=== PATIENT | female | born 1985 | race Caucasian/White ===

== ENCOUNTER 2019-01-05 08:39 | Inpatient (IN) | payer MEDICAID ==
[~2019-01-05] VITALS: Ht 162.6 cm; Wt 72.7 kg
[2019-01-05] VITALS (11 sets, daily range): BP systolic 110–146; BP diastolic 62–73; PULSE 88–109; RESP 17–25; Ht 162.6 cm; Wt 72.7 kg
[2019-01-05] MEDS ORDERED: NITR-58 PO (09:05)
--- NOTE | 2019-01-05 11:17 | HP ---
Date/Time of Note Date/Time of Note DATE: 01/05/19 TIME: 11:14 OB - History Hx of Present Free Text/Dictation 35+wks with right side abdominal pain more pronounced in RLQ +tenderness WBC 14k Highly suspected of Appendicitis, Patient is evaluated as Per 's request and she will be in charge and follow up on her patient : 5 Para: 2 Care: Good Care Ultrasounds: Normal mid trimester US Obstetrical Complications: None Medical Complications: None Past Family/Social History * Past Medical, Surgical, Family and Obstetric Histories reviewed from chart. OB Admission Exam Vital Signs Vital Signs Vital Signs Date Temp Pulse Resp B/P (MAP) Pulse Ox O2 O2 Flow FiO2 Time Delivery Rate 01/05/19 98.0 108 17 116/73 09:02 (87) Physical Exam Abdomen: Abnormal (RLQ tenderness+rebound) Extremities: Normal Cervical Dilatation: None Effacement: 0% Station: Ballotable Membranes: Intact Heart Rate: 140's Accelerations: Accelerations Present Decelerations: No Decelerations Varibility: Moderate Contractions on Admission: None Last 72 hours Lab Results CBC & BMP 01/05/19 09:39 Liver Function Test 01/05/19 09:39 Alanine Aminotransferase (ALT/SGPT) 22 Albumin 3.6 Alkaline Phosphatase 148 H Aspartate Amino Transf (AST/SGOT) 19 Direct Bilirubin 0.00 Total Protein 7.1 OB Assessment/Plan Reason for admission: observation Plan: Expectant Management Other plan: 1.MRI 2.NPO 3.IV hydration and pain management 4.Close Observation Patient is evaluated as Per 's request and she will be in charge and follow up on her patient CHRISTIE NORTH M.D. Jan 05, 2019 11:17
--- NOTE | 2019-01-05 11:47 | TRIAGE ---
OB Triage Datetime Report Generated by CPN: 01/05/2019 11:46 Datetime: 01/05/2019 11:21 Stage of : Antepartum Datetime: 01/05/2019 11:20 Pattern: Normal: <= 5 Contractions in 10 Minutes Resting Tone [place]: Relaxed Contraction Comments: no uc Heart Rate FHR Baseline Rate: 145 Variability: Moderate 6-25 bpm Accelerations: 15X15 Decelerations: None Category: Category I Datetime: 01/05/2019 11:03 Vaginal Exam Dilatation (cms): 0.0 Exam By: wliu Datetime: 01/05/2019 11:00 Labor Evaluation Frequency: occ Monitor Mode: External Duration (sec)2399: 50-60 Quality: Mild Pattern: Normal: <= 5 Contractions in 10 Minutes Resting Tone [place]: Relaxed Heart Rate FHR Baseline Rate: 145 Variability: Moderate 6-25 bpm Accelerations: 15X15 Decelerations: None Category: Category I Pain Assessment Pain Scale: 7 Pain Presence: Constant Pain Location: Abdomen Pain Goal: 3 Datetime: 01/05/2019 10:01 Pattern: Normal: <= 5 Contractions in 10 Minutes Resting Tone [place]: Relaxed Contraction Comments: no uc Heart Rate FHR Baseline Rate: 145 Monitor Mode: External US Variability: Moderate 6-25 bpm Accelerations: 15X15 Decelerations: None Category: Category I Datetime: 01/05/2019 09:22 Time of Arrival: 01/05/2019 08:38 EGA: 35.1 Arrived By: Wheelchair Arrived From: Home Chief Complaint: pt. came to hospital c/o abdominal pain since 0400am, constant pain, pain level 7/ 10, deny srom, deny vag. bleeding, Movement: Present Contractions: Denies/Absent Rupture of Membranes: Denies Vaginal Bleeding: None Vaginal Discharge: Denies Recent Sexual Intercouse: Denies Abdominal Trauma: Not Applicable Patient Complaints: Other Additional Patient Complaints: history of uti on macrobid Time Provider Notified: 01/05/2019 09:14 Provider Notified: Initial Plan: r/o ptl Datetime: 01/05/2019 09:14 Assessment Type: Triage Maternal Assessment Level of Consciousness: Fully Conscious DTR's/Clonus: DTRs 2+; No Clonus Headache: Denies Blurred Vision: No Respiratory Effort: Unlabored; Regular Rhythm; Equal Expansion Breath Sounds, Left: Clear and Equal Breath Sounds, Right: Clear and Equal Nausea/Vomiting: Denies RUQ Epigastric Pain: Denies Lower Extremities Edema: None Degree: None Upper Extremities Edema: None Degree: None Facial Edema: None Fall Risk Assessment History of Falling: (0) No Secondary Diagnosis: (0) No Ambulatory Aid: (0) Bedrest/Nurse Assist IV Therapy: (0) No Gait: (0) Normal/Bedrest/Immobile Mental Status: (0) Oriented to Own Ability Fall Score: 0 Fall Risk Score Definition: No Risk: No action required
[2019-01-05] MEDS: LACTATED RINGER'S 1,000 ML IV SCH ×2 (12:05→14:38)
[2019-01-05] MEDS: BUTORPHANOL 2 MG INJ IV PRN ×2 (12:09→17:18)
[2019-01-05] MEDS ORDERED: TERBUTALINE 1 MG/ML INJ SC ONE (18:00)
[2019-01-05] MEDS ORDERED: DEXAMETHASONE 4 MG/ML 5 ML INJ IM SCH (20:00)
[2019-01-05] MEDS: DEXAMETHASONE 4 MG/ML 5 ML INJ IM SCH (20:33)
--- NOTE | 2019-01-05 20:48 | QN ---
Documentation Comment 33 years old 5 para 4004 with single intrauterine at 34 weeks and 5 days by second trimester ultrasound which done at [place]. She presented to triage with complaint of abdominal pain today. MRI performed which revealed, acute appendicitis, unclear if it is ruptured with mild bilateral hydroureteronephrosis. I have discussed the MRI results with Dr. Shah who kindly accept to visit the patient. He is planning to perform appendectomy. I have discussed the risk with patient including but not limited to delivery of baby, respiratory distress, hyperbilirubinemia, anemia of prematurity, needs NICU admission, also the risk of vaginal delivery or discussed in detail with patient and all family member. All expressed understanding. All of their questions answered. Dexamethasone 6 mg IM every 6 hours for maturity of lung ordered. The patient will be transferred to labor and delivery for close monitoring after surgery. Immediately after surgery heart rate will be checked. If the patient has uterine contraction which can start magnesium sulfate 1 g/h. I discussed patient over the phone with Dr. Blaine Ayala who has agreed with above plan. CAROL HERRERA Jan 05, 2019 20:48
--- NOTE | 2019-01-05 21:19 | CONS ---
Assessment/Plan Assessment/Plan Assessment/Plan (Daily) 33-year-old female who is 32 weeks gestation with fifth presents with abdominal pain leukocytosis and signs and symptoms consistent with acute appendicitis on MRI and ultrasound. Patient's white blood cell count has risen from 14,000 this morning to 20,000 just now. Assessment is that patient has likely acute appendicitis unknown whether rupture or not. No evidence of abscess on MRI. OB has assessed patient and is monitored and ultrasound reveals a healthy fetus. Recommendation is for urgent laparoscopy with laparoscopic appendectomy understanding the risks of possible surgery anesthesia or infection causing a premature induction of labor. OB is present ultrasound and monitoring have been performed. Patient understands risks benefits alternatives and we will proceed with surgery as soon as or can be arranged. Consultation Date/Type/Reason Admit Date/Time Jan 05, 2019 at 11:20 Date of Consultation: Jan 05, 2019 Type of Consult surgical consult Reason for Consultation abdominal pain , Appendicitis by MRI Requesting Provider: CAROL HERRERA Date/Time of Note DATE: 01/05/19 TIME: 21:14 Hx of Present Illness Patient is 33-year-old female in fifth at 32 weeks presented to the emergency room after acute onset of pain at 2:00 this morning in the mid abdomen and right sided abdomen. Patient was seen by OB in the morning and evaluation with ultrasound and MRI were highly suspicious for appendicitis with a 1 cm dilated appendix without ability to assess for perforation. heart tones have been normal viability has been sound. Patient prior for deliveries were vaginal normal healthy . Patient has no other significant medical history Past Medical History Home Meds Reported Medications Nitrofurantoin Monohyd Macrocr* (Macrobid*) 100 Mg Capsr, 100 MG PO BID, CAP 01/05/19 Medications Current Medications Lactated Ringer's 1,000 ml @ 125 mls/hr Q8H IV Last administered on 01/05/19at 14:38; Admin Dose 125 MLS/HR; Start 01/05/19 at 11:15 Butorphanol Tartrate (Stadol) 2 mg Q4H PRN IV PAIN Last administered on 01/05/19at 17:18; Admin Dose 2 MG; Start 01/05/19 at 12:00 Dexamethasone (Decadron) 6 mg Q6H IM Last administered on 01/05/19at 20:33; Admin Dose 6 MG; Start 01/05/19 at 20:30; Stop 01/06/19 at 14:31 Allergies: Coded Allergies: penicillin G (Verified Allergy, Intermediate, RASH, 01/05/19) Exam/Review of Systems Exam Vitals Vital Signs Date Temp Pulse Resp B/P (MAP) Pulse Ox O2 O2 Flow FiO2 Time Delivery Rate 01/05/19 98.0 108 17 116/73 09:02 (87) Exam Patient alert and oriented Lao-speaking female complaining of severe pain to right side of abdomen. Seen by OB and felt safe to proceed with above-stated procedure heart tones have been monitored. Lungs clear to auscultation heart regular rate and rhythm abdomen gravid uterus at 32weeks with marked tenderness right side of abdomen. Results Result Diagram: 01/05/19202401/05/19938 Results 24hrs Laboratory Tests Test 01/05/19 09:30 01/05/19 09:39 01/05/19 20:25 Urine Color YELLOW Urine Clarity SLIGHTLY CLOUDY A Urine pH 6.0 Urine Specific [place] 1.017 Urine Ketones NEGATIVE Urine Nitrite NEGATIVE Urine Bilirubin NEGATIVE Urine Urobilinogen NEGATIVE Urine Leukocyte Esterase NEGATIVE Urine Microscopic RBC 1 Urine Microscopic WBC 2 Urine Squamous FEW Epithelial Cells Urine Hemoglobin NEGATIVE Urine Glucose NEGATIVE Urine Total Protein NEGATIVE White Blood Count 14.6 H 20.8 #H Red Blood Count 3.83 L 3.77 L Hemoglobin 11.9 L 11.6 L Hematocrit 35.1 L 34.4 L Mean Corpuscular Volume 91.6 91.2 Mean Corpuscular Hemoglobin 31.1 30.8 Mean Corpuscular 33.9 33.7 Hemoglobin Concent Red Cell Distribution Width 13.2 13.2 Platelet Count 178 199 Mean Platelet Volume 10.7 H 10.5 H Immature Granulocytes % 0.800 H 0.900 H Neutrophils % 79.6 H 85.0 H Lymphocytes % 13.7 L 7.4 L Monocytes % 4.8 6.4 Eosinophils % 0.8 0.0 Basophils % 0.3 0.3 Nucleated Red Blood Cells % 0.0 0.0 Immature Granulocytes # 0.110 H 0.190 H Neutrophils # 11.7 H 17.7 H Lymphocytes # 2.0 1.5 Monocytes # 0.7 1.3 H Eosinophils # 0.1 0.0 Basophils # 0.0 0.1 Nucleated Red Blood Cells # 0.0 0.0 Sodium Level 137 Potassium Level 3.4 L Chloride Level 106 Carbon Dioxide Level 22 Anion Gap 9 Blood Urea Nitrogen 4 L Creatinine 0.51 Est Glomerular Filtrat > 60 Rate mL/min Glucose Level 86 Calcium Level 9.1 Total Bilirubin 0.3 Direct Bilirubin 0.00 Indirect Bilirubin 0.3 Aspartate Amino 19 Transf (AST/SGOT) Alanine 22 Aminotransferase (ALT/SGPT) Alkaline Phosphatase 148 H Total Protein 7.1 Albumin 3.6 Globulin 3.50 H Albumin/Globulin Ratio 1.02 Amylase Level 66 Lipase 19 L Medications Medication Current Medications Lactated Ringer's 1,000 ml @ 125 mls/hr Q8H IV Last administered on 01/05/19 14:38; Admin Dose 125 MLS/HR; Start 01/05/19 at 11:15 Butorphanol Tartrate (Stadol) 2 mg Q4H PRN IV PAIN Last administered on 01/05/19 17:18; Admin Dose 2 MG; Start 01/05/19 at 12:00 Dexamethasone (Decadron) 6 mg Q6H IM Last administered on 01/05/19 20:33; Admin Dose 6 MG; Start 01/05/19 at 20:30; Stop 01/06/19 at 14:31 LIO CARDONA MD Jan 05, 2019 21:19
--- NOTE | 2019-01-05 21:31 | PREAC ---
Date/Time of Note Date/Time of Note DATE: 01/05/19 TIME: :26 Anesthesia Eval and Record Evaluation Time Pre-Procedure Interview DATE: 01/05/19 TIME: 21:26 Age 33 Sex female NPO: Other (NPO except apple about 3.5 hours ago) Preoperative diagnosis appendicitis Planned procedure laproscopic appendectomy Past Medical History Past Medical History: Includes Pulm: Asthma : Gestational age: (34 weeks ) Surgery & Anesthesia Issues No known issue Meds Anticoagulation: No Beta Zara within 24 hr: No Reason Beta Zara not given: Pt. not on B-Zara Reported Medications Nitrofurantoin Monohyd Macrocr* (Macrobid*) 100 Mg Capsr, 100 MG PO BID, CAP 01/05/19 Current Medications Lactated Ringer's 1,000 ml @ 125 mls/hr Q8H IV Last administered on 01/05/19at 14:38; Admin Dose 125 MLS/HR; Start 01/05/19 at 11:15 Butorphanol Tartrate (Stadol) 2 mg Q4H PRN IV PAIN Last administered on 01/05/19at 17:18; Admin Dose 2 MG; Start 01/05/19 at 12:00 Dexamethasone (Decadron) 6 mg Q6H IM Last administered on 01/05/19at 20:33; Admin Dose 6 MG; Start 01/05/19 at 20:30; Stop 01/06/19 at 14:31 Meds reviewed: Yes Allergies Coded Allergies: penicillin G (Verified Allergy, Intermediate, RASH, 01/05/19) Allergies Reviewed: Yes Labs/Studies Labs Reviewed: Reviewed by anesthesiologist Result Diagram: 01/05/19202401/05/19 0939 Laboratory Tests 01/05/19 09:39 01/05/19 20:25 test: Positive Pre-procedure Exam Last vitals Vital Signs Date Temp Pulse Resp B/P (MAP) Pulse Ox O2 O2 Flow FiO2 Time Delivery Rate 01/05/19 98.0 108 17 116/73 09:02 (87) Airway: Adequate mouth opening, Adequate thyromental dist Mallampati: Mallampati IV Teeth: Normal Lung: Normal Heart: Normal ASA Physical Status ASA physical status: 3 Emergency: E Pre-operative Attestations Prior to commencing anesthesia and surgery, the patient was re-evaluated, there was verification of: *The patient's identity *The results of appropriate recent lab work and preoperative vital signs *The above evaluation not changing prior to induction *Anesthetic plan, risk benefits, alternative and complications discussed with p atient/family; questions answered; patient/family understands, accepts and wishes to proceed. Production Finisher used (complications such as premature delivery and risk of aspiration explained to patient. she voices undrestanding and wants to proceed. Dr. Durbin from OBGYN ok wo proceed with no particular monitoring except post op heart monitor. Nicu called to be on standby. ) PACO GRULLON DO Jan 05, 2019 21:31
[2019-01-05] MEDS ORDERED: PROPOFOL 20 ML ONE (21:36)
[2019-01-05] MEDS ORDERED: SUCCINYLCHOLINE CHLORIDE 100 MG/5 ML SYG IV ONE (21:36)
[2019-01-05] MEDS ORDERED: MIDAZOLAM 1 MG/ML 2 ML INJ ONE (21:36)
[2019-01-05] MEDS ORDERED: PHENYLephrine (100 MCG/ML) 10ML SYG ONE (21:48)
[2019-01-05] MEDS ORDERED: BUPIVACAINE 0.5%/EPI (SDV) 30 ML INJ ONE (21:51)
[2019-01-05] MEDS ORDERED: BUPIVACAINE 0.25% (MPF) 30 ML INJ ONE (21:57)
[2019-01-05] MEDS ORDERED: CLINDAMYCIN 600 MG/D5W (PMX) 50 ML IVPB ONE (22:57)
[2019-01-05] MEDS ORDERED: ATROPINE 1 MG/10 ML SYRINGE ONE (22:57)
[2019-01-05] MEDS ORDERED: NEOSTIGMINE 3 MG/3 ML SYRINGE ONE (22:57)
[2019-01-05] MEDS ORDERED: ONDANSETRON 4 MG INJ ONE (23:00)
--- NOTE | 2019-01-05 23:02 | OPR ---
Date/Time of Note Date/Time of Note DATE: 01/05/19 TIME: 22:54 Operative Report Free Text/Dictation Operative report Procedure Date: Jan 05, 2019 Preoperative Diagnosis Acute appendicitis Postoperative Diagnosis Acute separative appendicitis possible perforation Operation/Procedure Performed Laparoscopic appendectomy Surgeon Marc Arauz MD see signature line Liquefier None Anesthesia Type: general Anesthesiologist: PACO GRULLON DO Estimated Blood Loss: none Transfusion none Specimen Appendix Grafts/Implants none Tubes/Drains None Complications none Pt Condition Post Procedure: stable Disposition: PACU Indications 34 weeks gestation 33-year-old female with abdominal pain elevated white blood cell count and MRI, ultrasound consistent with acute appendicitis possible perforation. Patient admitted evaluated by OB for monitoring initiated. Surgical consultation requested I saw patient and agree with diagnosis of acute appendicitis with need for urgent laparoscopy and laparoscopic appendectomy. 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 Informed consent obtained risk benefits alternatives were discussed and patient was brought urgently to the operating room Procedure Description Patient brought to the operating room directly from OB after monitoring completed and showed normal heart tones in vertex position. Patient was brought to the operating room general anesthesia administered patient was prepped and draped in standard sterile fashion timeout was completed orogastric tube and De Jesus catheter were inserted. Because of the stage of gestation varies needle was used at the left upper quadrant Talbot's point and carefully drop test performed which confirmed presence into the abdomen insufflation administered to maintain pneumoperitoneum at 13 mmHg throughout the procedure. A subxiphoid upper abdominal stab incision was made under direct visualization with a 35 Bernardo laparoscope a 5 mm trocar was inserted carefully and the peritoneum was entered the large gravid uterus was appreciated the left lower quadrant was explored and the varies needle was identified no bleeding or injuries noted in the Veress needle was removed insufflation tubing was switched to the subxiphoid trocar next a upper abdominal trocar below the subxiphoid trocar was inserted and then carefully atraumatic graspers were used to explore the the right lower quadrant. Carefully traversing over the uterus the cecum was identified and the appendix was noted which was quite inflamed with some necrotic mid portion with fibrinous exudate and some turbid, purulent fluid noted in the right gutter. The appendix was elevated at the resection it was peeled away and the Rosas's veil was used to elevate the appendix and a window was able to be made in the mesoappendix. A right upper quadrant incision was ma de to accommodate a 12 mm trocar which was inserted carefully. Patient was placed in right side up in slight Trendelenburg position. An Concow vascular 35 mm cartridge was then inserted and the mesoappendix was divided a second application was required to completely take the mesoappendix. The base of the appendix was then widely exposed and cleared. An additional application of the Concow Endo RANDOLPH was then used to come across the base of the appendix. A specimen bag was then inserted and the appendix placed and this was brought through the wound and the trocar was then reinserted the area of the fibrinous exudate and turbid fluid was aspirated and irrigated with normal saline until clear the right gutter and right upper quadrant was similarly irrigated and aspirated. No other issues of concern the 12 mm trocar was then removed and a port site closure device with a was used to close the trocar site with an 0 Ethibond suture. The pneumoperitoneum was allowed to escape through the remaining 2 trochars were removed and the skin incision closed with 4-0 Monocryl interrupted Vicryl and Dermabond. Patient was explained the operative brought recovery room in stable condition. Sponge needle count correct x2. MARC ARAUZ MD Jan 05, 2019 23:02
[2019-01-05] MEDS ORDERED: MAGNESIUM SULFATE 20 GM/500 ML 500 ML IV STA (23:26)
--- NOTE | 2019-01-05 23:28 | PAC ---
Date/Time of Note Date/Time of Note DATE: 01/05/19 TIME: 23:25 Post-Anesthesia Notes Post-Anesthesia Note Last documented vital signs Vital Signs Date Temp Pulse Resp B/P (MAP) Pulse Ox O2 O2 Flow FiO2 Time Delivery Rate 01/05/19 99.5 94 22 116/73 100 facemask 10 2326 (87) nonrebreat her Activity: WNL Respiratory function: WNL Cardiovascular function: WNL Mental status: Baseline Pain reasonably controlled: Yes Hydration appropriate: Yes Nausea/Vomiting absent: Yes PACO GRULLON DO Jan 05, 2019 23:28
[2019-01-06] VITALS (14 sets, daily range): BP systolic 104–115; BP diastolic 55–65; PULSE 84–120; RESP 15–27
[2019-01-06] MEDS ORDERED: HYDROmorphONE 1 MG/5 ML IV SYRINGE IV PRN
[2019-01-06] MEDS ORDERED: KETOROLAC 30 MG INJ IV PRN
[2019-01-06] MEDS ORDERED: ONDANSETRON 4 MG INJ IV PRN
[2019-01-06] MEDS: CLINDAMYCIN 600 MG/D5W (PMX) 50 ML IVPB SCH ×5 (00:10→23:15)
[2019-01-06] MEDS: DEXAMETHASONE 4 MG/ML 5 ML INJ IM SCH ×3 (02:47→21:54)
[2019-01-06] MEDS: LACTATED RINGER'S 1,000 ML IV SCH ×3 (02:56→23:15)
[2019-01-06] MEDS ORDERED: MAGNESIUM SULFATE 20 GM/500 ML 500 ML IV STA (04:15)
[2019-01-06] MEDS: HYDROmorphONE 0.5 MG/0.5 ML SYG IV PRN (04:55)
[2019-01-06] MEDS: FAMOTIDINE 20 MG INJ IV SCH ×2 (09:42→21:54)
[2019-01-06] MEDS: MAGNESIUM SULFATE 20 GM/500 ML 500 ML IV SCH ×2 (10:19→23:22)
[2019-01-06] MEDS: BUTORPHANOL 2 MG INJ IV PRN (15:53)
[2019-01-06] MEDS ORDERED: ACETAMINOPHEN 325 MG TAB PO PRN (16:30)
--- NOTE | 2019-01-06 20:21 | PN ---
Date/Time of Note Date/Time of Note DATE: 01/06/19 TIME: 20:17 OB Subjective Subjective Subjective Patient is doing well. She denies nausea, vomiting, shortness of breath, chest pain, headache. She has been tolerating regular diet. Pain is well controlled on current medications General: AAO X 3, comfortable, NAD, appropriate mood and affect. Heart: RRR +S1, +S2, no murmurs. Lungs: Clear to auscultation (B/L), no rales, rhonchi or wheezing. ABD: +BS. Soft, non-tender. Uterus 2 cm below umbilicus Incision: Clear, dry, intact. No erythema, drainage or induration. h Flank: No CVA tenderness (B/L) LE: Mild edema. No clubbing, cyanosis, thigh or calf tenderness (B/L). Homans 'sign is negative 33 years old 5 para 4004 with single intrauterine at 34 weeks and 6 days s/p laparoscopic appendectomy POD#1 -AF, VSS - heart rate category 1 -Continue external monitoring and toco -She has occasional uterine contractions -She has received 4 doses of dexamethasone for lung maturity and currently is on magnesium sulfate -She is currently on clindamycin 600 mg every 6 hours -continue current management -Please see CAROL Loredo Jan 06, 2019 20:21
[2019-01-06] MEDS: HYDROCODONE/APAP (5/325) TAB PO PRN (23:57)
[2019-01-07] MEDS: HYDROmorphONE 0.5 MG/0.5 ML SYG IV PRN (00:53)
[2019-01-07] MEDS: LACTATED RINGER'S 1,000 ML IV SCH ×3 (03:15→19:15)
[2019-01-07] MEDS: CLINDAMYCIN 600 MG/D5W (PMX) 50 ML IVPB SCH ×4 (06:00→23:53)
[2019-01-07] MEDS: HYDROCODONE/APAP (5/325) TAB PO PRN ×3 (08:13→23:08)
[2019-01-07] MEDS: FAMOTIDINE 20 MG INJ IV SCH ×2 (08:14→21:39)
--- NOTE | 2019-01-07 15:09 | PN ---
Date/Time of Note Date/Time of Note DATE: 01/07/19 TIME: 15:04 OB Subjective Subjective Subjective Patient is doing well. She denies nausea, vomiting, shortness of breath, chest pain, headache. She has been tolerating regular diet. Pain is well controlled on current medications OB Objective Objective Objective Vital Signs Date Temp Pulse Resp B/P (MAP) Pulse Ox O2 O2 Flow FiO2 Time Delivery Rate 01/06/19 99.4 108 19 110/63 98 Mask 8.0 01:05 (79) General: AAO X 3, comfortable, NAD, appropriate mood and affect. ABD: +BS. Soft, non-tender. Uterus 2 cm below umbilicus Incision: Clear, dry, intact. No erythema, drainage or induration. Flank: No CVA tenderness (B/L) LE: Mild edema. No clubbing, cyanosis, thigh or calf tenderness (B/L). Homans 'sign is negative Laboratory Tests Test 01/05/19 20:25 01/06/19 05:19 01/06/19 12:09 01/06/19 18:53 White Blood 20.8 10^3/ul 20.5 10^3/ul Count Red Blood Count 3.77 10^6/ul 3.61 10^6/ul Hemoglobin 11.6 g/dl 11.2 g/dl Hematocrit 34.4 % 33.1 % Mean 91.2 fl 91.7 fl Corpuscular Volume Mean 30.8 pg 31.0 pg Corpuscular Hemoglobin Mean 33.7 g/dl 33.8 g/dl Corpuscular Hemoglobin Conc ent Red Cell 13.2 % 13.5 % Distribution Width Platelet Count 199 10^3/UL 191 10^3/UL Mean Platelet 10.5 fl 10.9 fl Volume Immature 0.900 % 0.900 % Granulocytes % Neutrophils % 85.0 % 91.2 % Lymphocytes % 7.4 % 6.3 % Monocytes % 6.4 % 1.5 % Eosinophils % 0.0 % 0.0 % Basophils % 0.3 % 0.1 % Nucleated Red 0.0 /100WBC 0.0 /100WBC Blood Cells % Immature 0.190 10^3/ul 0.190 10^3/ul Granulocytes # Neutrophils # 17.7 10^3/ul 18.7 10^3/ul Lymphocytes # 1.5 10^3/ul 1.3 10^3/ul Monocytes # 1.3 10^3/ul 0.3 10^3/ul Eosinophils # 0.0 10^3/ul 0.0 10^3/ul Basophils # 0.1 10^3/ul 0.0 10^3/ul Nucleated Red 0.0 10^3/ul 0.0 10^3/ul Blood Cells # Magnesium Level 3.8 mg/dl 4.5 mg/dl 4.9 mg/dl Test 01/07/19 00:33 01/07/19 05:56 01/07/19 06:44 01/07/19 10:39 Magnesium Level 5.0 mg/dl 5.2 mg/dl Lab Scanned REFERENCE Report LAB [id number] White Blood 18.5 10^3/ul Count Red Blood Count 3.23 10^6/ul Hemoglobin 10.1 g/dl Hematocrit 30.0 % Mean 92.9 fl Corpuscular Volume Mean 31.3 pg Corpuscular Hemoglobin Mean 33.7 g/dl Corpuscular Hemoglobin Conc ent Red Cell 13.9 % Distribution Width Platelet Count 198 10^3/UL Mean Platelet 10.2 fl Volume Immature 1.200 % Granulocytes % Neutrophils % 82.4 % Lymphocytes % 11.2 % Monocytes % 4.9 % Eosinophils % 0.1 % Basophils % 0.2 % Nucleated Red 0.0 /100WBC Blood Cells % Immature 0.230 10^3/ul Granulocytes # Neutrophils # 15.2 10^3/ul Lymphocytes # 2.1 10^3/ul Monocytes # 0.9 10^3/ul Eosinophils # 0.0 10^3/ul Basophils # 0.0 10^3/ul Nucleated Red 0.0 10^3/ul Blood Cells # OB Assessment/Plan Other plan: 33 years old 5 para 4004 with single intrauterine at 35 weeks s/p laparoscopic appendectomy POD#2 -AF, VSS - heart rate category 1 -Continue external monitoring and toco -She has occasional uterine contractions -She is currently steroid benefitted -Magnesium sulfate discontinued -She is currently on clindamycin 600 mg every 6 hours -Continue current management -Follow up by CAROL Sharif Jan 07, 2019 15:08
[2019-01-08] MEDS: LACTATED RINGER'S 1,000 ML IV SCH (03:45)
[2019-01-08] MEDS: CLINDAMYCIN 600 MG/D5W (PMX) 50 ML IVPB SCH (05:58)
[2019-01-08] MEDS: FAMOTIDINE 20 MG INJ IV SCH (09:27)
--- NOTE | 2019-01-08 16:22 | PN ---
Date/Time of Note Date/Time of Note DATE: 01/08/19 TIME: 16:19 OB Subjective Subjective Subjective Patient tolerated regular diet. Passed flatus. Denies any nausea and vomiting. Denies any fever or chills. Denies any leaking of fluid, vaginal bleeding decreased movement. Pain well controlled with p.o. pain medication. OB Objective Objective Objective General appearance: Alert and oriented x4 does not appear to be in any acute distress Abdomen: Soft, gravid, appropriate tenderness in the laparoscopic abdominal incision noted Abdomen gravid, NST: Category 1 Incision: Clean dry and intact all 3 laparoscopic incision with no evidence of infection, drainage, hematoma or cellulitis Extremities: No calf tenderness, no click no edema Lungs: Clear to auscultation bilaterally Vital Signs Date Temp Pulse Resp B/P (MAP) Pulse Ox O2 O2 Flow FiO2 Time Delivery Rate 01/06/19 99.4 108 19 110/63 98 Mask 8.0 01:05 (79) Laboratory Tests Test 01/06/19 18:53 01/07/19 00:33 01/07/19 05:56 01/07/19 06:44 Magnesium Level 4.9 mg/dl 5.0 mg/dl 5.2 mg/dl Lab Scanned REFERENCE Report LAB [id number] Test 01/07/19 10:39 01/08/19 09:57 White Blood 18.5 10^3/ul 10.6 10^3/ul Count Red Blood Count 3.23 10^6/ul 3.54 10^6/ul Hemoglobin 10.1 g/dl 10.9 g/dl Hematocrit 30.0 % 32.8 % Mean Corpuscular 92.9 fl 92.7 fl Volume Mean Corpuscular 31.3 pg 30.8 pg Hemoglobin Mean Corpuscular 33.7 g/dl 33.2 g/dl Hemoglobin Sandy nt Red Cell 13.9 % 13.8 % Distribution Width Platelet Count 198 10^3/UL 219 10^3/UL Mean Platelet 10.2 fl 10.3 fl Volume Immature 1.200 % 0.800 % Granulocytes % Neutrophils % 82.4 % 56.4 % Lymphocytes % 11.2 % 36.1 % Monocytes % 4.9 % 5.3 % Eosinophils % 0.1 % 1.1 % Basophils % 0.2 % 0.3 % Nucleated Red 0.0 /100WBC 0.0 /100WBC Blood Cells % Immature 0.230 10^3/ul 0.080 10^3/ul Granulocytes # Neutrophils # 15.2 10^3/ul 6.0 10^3/ul Lymphocytes # 2.1 10^3/ul 3.8 10^3/ul Monocytes # 0.9 10^3/ul 0.6 10^3/ul Eosinophils # 0.0 10^3/ul 0.1 10^3/ul Basophils # 0.0 10^3/ul 0.0 10^3/ul Nucleated Red 0.0 10^3/ul 0.0 10^3/ul Blood Cells # OB Assessment/Plan Other Assessment: IUP at 35 weeks and 1 day Status post appendectomy due to ruptured appendicitis Doing well No evidence of labor Afebrile testing reassuring Patient meet the criteria for discharge. Vitals are stable. Recommendation of general surgery recommended to be on Flagyl for 7 days after the surgery with follow-up within 7-10 days after discharge from the hospital with primary OB office and general surgeon. Strict labor precaution and kick count discussed the patient Patient verbalized understanding. Advised the patient to be seen in OB office within 48 hours after discharge from the hospital. All questions were answered to patient's best satisfaction Prescription for Flagyl was given 500 mg 3 times daily for 7 days KARINE MARIN MD Jan 08, 2019 16:22
--- NOTE | 2019-01-08 16:45 | PD.PPDC ---
[employer] RECEIVABLE [employer]PER[employer]OR Discharge Instruction Provider Information Physician Information 01/08/2019 Diagnosis [id number] Final Diagnosis: Oerei7j IUP at 35 weeks. Appendicitis Condition [id number] Patient Condition: [id number] Good Activity/Restrictions [id number] Restrictions: Rdhwp1c No Exercising No Lifting No Driving Minimize Walking Minimize Stair-climbing No Sexual Activity Nothing in the Vagina No [place] No Tampons, douche Follow-up Follow-up with Physician: 2, 7, Day/Days Provider Information: Karine Marin MD Return to clinic for [id number] COMPENSATION INTERN Instructions: [id number] Fever greater than 101 Chills Worsening abdominal pain Excessive Vaginal Bleeding More than 2 pads per hour Unable to tolerate diet [id number] Surgical Instructions: Hyaru1y Incisional Drainage Incisional Redness KARINE MARIN MD Jan 08, 2019 16:45
--- NOTE | 2019-01-08 16:46 | DS ---
Date/Time of Note Date/Time of Note DATE: 01/08/19 TIME: 16:45 Discharge Summary Admission/Discharge Info Admit Date/Time Jan 05, 2019 at 11:20 Discharge Date/Time Jan 08, 2019 at 12:00 Discharge Diagnosis IUP at 35 weeks Right-sided abdominal pain highly suspected for appendicitis Patient Condition: Good Consults Surgery Procedures [facility] [place] Hospital Course 33-year-old with IUP at 35 weeks + presented with complaint of lower abdominal pain in the right side. MRI and clinical picture suspicious for appendicitis. She was consulted by general surgeon and underwent laparoscopic appendectomy. Patient postoperatively did well. Intraoperative no complication noted. On p ostoperative day #2 patient was noted to be stable enough to be discharged. She was ablating. Tolerated regular diet. Passed flatus. Denies any nausea vomiting. Her vitals were stable and she was afebrile. She was advised by general surgeon to get Flagyl or clindamycin for 7 days after discharge from the hospital with close follow-up in a week after discharge from the hospital with general surgery and OB. She did not show any evidence of labor. She received a full course of steroid prior to surgery for lung maturity in case of delivery. Her hospital course was otherwise uncomplicated. Home Meds Discontinued Reported Medications Nitrofurantoin Monohyd Macrocr* (Macrobid*) 100 Mg Capsr, 100 MG PO BID, CAP 01/05/19 Primary Care Provider Care Physician No Primary Time spent on discharge: > 30 minutes Pending Labs Laboratory Tests Test 01/08/19 09:57 White Blood Count 10.6 10^3/ul (4.8-10.8) Red Blood Count 3.54 10^6/ul (4.20-5.40) Hemoglobin 10.9 g/dl (12.0-16.0) Hematocrit 32.8 % (37.0-47.0) Mean Corpuscular Volume 92.7 fl (82.0-101.0) Mean Corpuscular Hemoglobin 30.8 pg (29.0-33.0) Mean Corpuscular Hemoglobin Concent 33.2 g/dl (32.0-37.0) Red Cell Distribution Width 13.8 % (11.5-14.5) Platelet Count 219 10^3/UL (140-415) Mean Platelet Volume 10.3 fl (7.4-10.4) Immature Granulocytes % 0.800 % (0.001-0.429) Neutrophils % 56.4 % (39.0-77.0) Lymphocytes % 36.1 % (15.0-51.0) Monocytes % 5.3 % (0.0-11.0) Eosinophils % 1.1 % (0.0-7.0) Basophils % 0.3 % (0.0-2.0) Nucleated Red Blood Cells % 0.0 /100WBC (0.0-0.0) Immature Granulocytes # 0.080 10^3/ul (0.0-0.031) Neutrophils # 6.0 10^3/ul (1.6-7.5) Lymphocytes # 3.8 10^3/ul (0.8-2.9) Monocytes # 0.6 10^3/ul (0.3-0.9) Eosinophils # 0.1 10^3/ul (0.0-0.5) Basophils # 0.0 10^3/ul (0.0-0.1) Nucleated Red Blood Cells # 0.0 10^3/ul (0.0-0.0) KARINE MARIN MD Jan 08, 2019 16:46
== END 2019-01-08 12:00 | disposition home or self-care (01) | DRG 817 ==
LOC: L-D 08:39 → OBT 08:39 → PP1 11:20 → OBT 11:21 → PP1 12:14 → L-D 01-06 01:17 → PP1 01-06 20:54
PROVIDERS: ADMIT Obstetrics & Gynecology; ATTEND Obstetrics & Gynecology
PROC: 0DTJ4ZZ Resection of Appendix, Percutaneous Endoscopic Approach (ICD-10-PCS; principal; 2019-01-05 21:30)
DX: O99.613 Diseases of the digestive system complicating pregnancy, third trimester (principal); K35.32 Acute appendicitis with perforation, localized peritonitis, and gangrene, without abscess; Z3A.35 35 weeks gestation of pregnancy
CPT/HCPCS: 74183; 76705; 76818; 80053; 81001; 81003; 82150; 83690; 83735; 85025; 87070; 88304; G0463; J0461; J0595; J1100; J1170; J1885; J2250; J2370; J2405; J2710; J3010; J3105; J3475; J7120

== ENCOUNTER 2019-02-06 09:31 | Inpatient (IN) | payer MEDICAID ==
[~2019-02-06] VITALS: Ht 165.1 cm; Wt 72.7 kg
[2019-02-06] MEDS ORDERED: LACTATED RINGER'S 1,000 ML IV SCH (09:41)
--- NOTE | 2019-02-06 09:57 | TRIAGE ---
OB Triage Datetime Report Generated by CPN: 02/06/2019 09:56 Datetime: 02/06/2019 09:55 Comments: report given to Elzbieta Isaac rn Datetime: 02/06/2019 09:49 Comments: transfered to labor and delivery Datetime: 02/06/2019 09:35 Stage of : OB Triage Assessment Type: Triage Time of Arrival: 02/06/2019 09:21 EGA: 39.2 Arrived By: Ambulatory Arrived From: Home Chief Complaint: uc's Movement: Present Contractions: Regular Rupture of Membranes: Denies Vaginal Bleeding: None Vaginal Discharge: Denies Recent Sexual Intercouse: Denies Patient Complaints: Contractions Initial Plan: efm, call md ve Maternal Assessment Level of Consciousness: Fully Conscious DTR's/Clonus: DTRs 2+; No Clonus Headache: Denies Blurred Vision: No Respiratory Effort: Unlabored; Regular Rhythm; Equal Expansion Breath Sounds, Left: Clear and Equal Breath Sounds, Right: Clear and Equal Nausea/Vomiting: Denies RUQ Epigastric Pain: Denies Lower Extremities Edema: None Degree: None Upper Extremities Edema: None Degree: None Facial Edema: None Temperature Route: Oral Fall Risk Assessment History of Falling: (0) No Secondary Diagnosis: (0) No Ambulatory Aid: (0) Bedrest/Nurse Assist IV Therapy: (0) No Gait: (0) Normal/Bedrest/Immobile Mental Status: (0) Oriented to Own Ability Fall Score: 0 Fall Risk Score Definition: No Risk: No action required Monitor Mode: External (Annotations: initial plcement ) Monitor Mode: External US (Annotations: initial placement ) Pain Assessment Pain Scale: 6 Pain Presence: Intermittent Pain Type: Contraction Pain Location: Abdomen Pain Relief Measures: Comfort Measures Datetime: 01/08/2019 11:42 Comments: D/C instruction given to pt. All questions answered. Datetime: 01/08/2019 10:40 Comments: Dr. Anthony at bedside to review pt's strip (7am to 8am), check pt's incisions, CBC resul ts WBC 10.6, H 10.9/ H 32.8. New order to send pt home with a prescription of Flagyl 500mg PO TID x 7 days Datetime: 01/08/2019 09:01 Comments: Dr. Seth called me back after speaking with the surgeon Dr. Arauz. She stated "Repea t CBC now, and give results to Dr. Anthony (laborist covering for Dr. Seth).Pt may go home today , tell pt to be patient and keep IV at least till today" Datetime: 01/08/2019 08:33 Comments: Spoke to Dr. Seth about pt's request to have IV removed. Dr. Seth stated "I will consult with the surgeon to see if he recomends to removed IV due to the rupture of pt's appendix and the concerns of infection". MD will call this nurse back with orders to continue or to discontinue I Vafter talking to the surgeon. Datetime: 01/08/2019 08:11 Maternal Assessment Level of Consciousness: Fully Conscious Headache: Denies Blurred Vision: No Nausea/Vomiting: Denies RUQ Epigastric Pain: Denies Facial Edema: None Labor Evaluation Frequency: 0 Monitor Mode: External Duration (sec)2399: 0 Resting Tone Pax: Relaxed Heart Rate FHR Baseline Rate: 125 Monitor Mode: External US FHR Baseline Changes: No Baseline Change Variability: Moderate 6-25 bpm Accelerations: 15X15 Decelerations: None Category: Category I Pain Assessment Pain Scale: 0 Pain Presence: None/Denies Pain Type: N/A Pain Goal: 3 Membrane Status: Intact Datetime: 01/08/2019 08:05 Comments: Pt c/o IV discomfort since IV was placed. Hand is not swollen or cold at palpation, no si gns of infiltration noted. This nurse offered pt to change IV to right hand, but pt refused. Pt state d "I want the IV to be removed, and to be re-started". This nurse explained to pt that she needs the IV for the antibiotics that she is receiving, but will talk to Dr. Seth about her concerns. Datetime: 01/08/2019 08:01 Stage of : Antepartum Temperature Route: Oral Datetime: 01/08/2019 08:00 Assessment Type: Ongoing Assessment Maternal Assessment Level of Consciousness: Fully Conscious DTR's/Clonus: DTRs 2+; No Clonus Headache: Denies Blurred Vision: No Respiratory Effort: Unlabored; Regular Rhythm; Equal Expansion Breath Sounds, Left: Clear and Equal Breath Sounds, Right: Clear and Equal Nausea/Vomiting: Denies RUQ Epigastric Pain: Denies Lower Extremities Edema: None Upper Extremities Edema: None Facial Edema: None Fall Risk Assessment History of Falling: (0) No Secondary Diagnosis: (0) No Ambulatory Aid: (0) Bedrest/Nurse Assist Gait: (0) Normal/Bedrest/Immobile Mental Status: (0) Oriented to Own Ability Datetime: 01/08/2019 07:29 Stage of : Antepartum Datetime: 01/08/2019 06:52 Monitor Mode: External US Comments: APPLIED FOR NST Datetime: 01/08/2019 06:51 Monitor Mode: External US Comments: APPLIED FOR NST Datetime: 01/08/2019 06:08 Stage of : Antepartum Temperature Route: Oral Datetime: 01/08/2019 06:05 Stage of : Antepartum Datetime: 01/08/2019 05:58 Stage of : Antepartum Contraction Comments: PT ANTONIO CRAMPING Comments: PT STATES + FM Pain Presence: None/Denies Pain Type: N/A Pain Assessment Comments: PT STATES HER HAND FEELS SWOLLEN BUT NO PAIN. Membrane Status: Intact Vaginal Bleeding: None Datetime: 01/08/2019 04:35 Stage of : Antepartum Datetime: 01/08/2019 04:30 Stage of : Antepartum Datetime: 01/08/2019 03:45 Stage of : Antepartum Pain Assessment Pain Scale: 5 Pain Presence: Constant Pain Type: Ache Pain Location: Left Leg Pain Goal: 2 Pain Relief Measures: Comfort Measures Pain Assessment Comments: PT STATES HER HAND IS SWOLLEN. IV NOT INFILTRATED, BLOOD RETURN. PT ENC OURAGED TO ELEVATE AND MOVE HER HAND. PT'S ROOMMATE TOLD THE PT HER HAND FEELS THE SAME WAY. Datetime: 01/08/2019 02:05 Stage of : Antepartum Pain Presence: None/Denies Pain Type: N/A Pain Assessment Comments: PT SLEEPING WITH EVEN UNLABORED BREATHING Datetime: 01/08/2019 01:30 Stage of : Antepartum Datetime: 01/07/2019 23:55 Stage of : Antepartum Pain Assessment Pain Scale: 4 Pain Presence: Constant Pain Type: Burning Pain Location: Abdomen (Annotations: UPPER ABDOMEN AT THE LAP APPY INCISION SITES.) Pain Goal: 2 Pain Relief Measures: Comfort Measures (Annotations: PT REPOSITIONED) Datetime: 01/07/2019 23:53 Stage of : Antepartum Datetime: 01/07/2019 23:18 Stage of : Antepartum Pain Assessment Pain Scale: 5 Pain Presence: Constant Pain Type: Burning Pain Location: Abdomen (Annotations: UPPER ABDOMEN BY THE INCISION SITES FOR THE LAP APPY) Pain Goal: 2 Pain Relief Measures: Pain Medication Given Datetime: 01/07/2019 21:39 Stage of : Antepartum Datetime: 01/07/2019 20:48 Labor Evaluation Frequency: NONE Monitor Mode: External Resting Tone Pax: Relaxed Heart Rate FHR Baseline Rate: 140 Monitor Mode: External US Variability: Moderate 6-25 bpm Accelerations: None Decelerations: None Category: Category I Pain Presence: None/Denies Pain Type: N/A Datetime: 01/07/2019 20:00 Labor Evaluation Frequency: NONE Monitor Mode: External Resting Tone Pax: Relaxed Heart Rate FHR Baseline Rate: 135 Monitor Mode: Internal Scalp Electrode Variability: Moderate 6-25 bpm Accelerations: 15X15 Decelerations: None Category: Category I Pain Presence: Intermittent Pain Type: N/A Datetime: 01/07/2019 19:12 Stage of : Antepartum Assessment Type: Ongoing Assessment Maternal Assessment Level of Consciousness: Fully Conscious DTR's/Clonus: DTRs 2+; No Clonus Headache: Denies Blurred Vision: No Respiratory Effort: Unlabored; Regular Rhythm; Equal Expansion Breath Sounds, Left: Clear and Equal Breath Sounds, Right: Clear and Equal Nausea/Vomiting: Denies RUQ Epigastric Pain: Denies Lower Extremities Edema: None Degree: None Upper Extremities Edema: None Degree: None Facial Edema: None Temperature Route: Oral Fall Risk Assessment History of Falling: (0) No Secondary Diagnosis: (0) No Ambulatory Aid: (0) Bedrest/Nurse Assist IV Therapy: (0) No Gait: (0) Normal/Bedrest/Immobile Mental Status: (0) Oriented to Own Ability Fall Score: 0 Fall Risk Score Definition: No Risk: No action required Monitor Mode: External Contraction Comments: PT DENIES Monitor Mode: External US Comments: PT STATES + FM Pain Presence: None/Denies Pain Type: N/A Membrane Status: Intact Vaginal Bleeding: None Datetime: 01/07/2019 17:56 Maternal Assessment Level of Consciousness: Fully Conscious Headache: Denies Blurred Vision: No Respiratory Effort: Unlabored Nausea/Vomiting: Denies RUQ Epigastric Pain: Denies Labor Evaluation Frequency: 0/hr Monitor Mode: External Resting Tone Pax: Relaxed Heart Rate FHR Baseline Rate: 135 Monitor Mode: External US Variability: Moderate 6-25 bpm Accelerations: 15X15 Decelerations: None Datetime: 01/07/2019 17:11 Stage of : Antepartum Headache: Denies Nausea/Vomiting: Denies RUQ Epigastric Pain: Denies Labor Evaluation Frequency: 0/hr Monitor Mode: External Heart Rate FHR Baseline Rate: 130 Monitor Mode: External US Variability: Moderate 6-25 bpm Accelerations: 15X15 Pain Presence: None/Denies Datetime: 01/07/2019 16:28 Labor Evaluation Frequency: 0/hr Heart Rate FHR Baseline Rate: 135 Variability: Moderate 6-25 bpm Accelerations: 15X15 Decelerations: None Datetime: 01/07/2019 15:54 Stage of : Antepartum Datetime: 01/07/2019 15:53 Pain Assessment Pain Scale: 6 Pain Presence: Constant Pain Type: Sharp Pain Location: Abdomen Pain Relief Measures: Pain Medication Given; Comfort Measures Datetime: 01/07/2019 15:00 Stage of : Antepartum Maternal Assessment Level of Consciousness: Fully Conscious Headache: Denies Nausea/Vomiting: Denies RUQ Epigastric Pain: Denies Labor Evaluation Frequency: 0/hr Monitor Mode: External Heart Rate FHR Baseline Rate: 130 Monitor Mode: External US Variability: Moderate 6-25 bpm Accelerations: 15X15 Pain Presence: None/Denies Datetime: 01/07/2019 14:28 Stage of : Antepartum Maternal Assessment Level of Consciousness: Fully Conscious Headache: Denies Blurred Vision: No Respiratory Effort: Unlabored Nausea/Vomiting: Denies RUQ Epigastric Pain: Denies Resting Tone Pax: Relaxed Pain Presence: None/Denies Datetime: 01/07/2019 14:00 Stage of : Antepartum Maternal Assessment Level of Consciousness: Fully Conscious Headache: Denies Nausea/Vomiting: Denies RUQ Epigastric Pain: Denies Labor Evaluation Frequency: 0/hr Monitor Mode: External Heart Rate FHR Baseline Rate: 130 Monitor Mode: External US Variability: Moderate 6-25 bpm Accelerations: 15X15 Pain Presence: None/Denies Datetime: 01/07/2019 13:44 Monitor Mode: Palpation Resting Tone Pax: Relaxed Monitor Mode: External US Pain Presence: None/Denies Pain Assessment Comments: pt. denies pain at this time Datetime: 01/07/2019 13:30 Stage of : Antepartum Maternal Assessment Level of Consciousness: Fully Conscious Headache: Denies Blurred Vision: No Respiratory Effort: Unlabored Nausea/Vomiting: Denies RUQ Epigastric Pain: Denies Labor Evaluation Frequency: 0/hr Monitor Mode: External Heart Rate FHR Baseline Rate: 130 Monitor Mode: External US Variability: Moderate 6-25 bpm Accelerations: 15X15 Pain Presence: None/Denies Datetime: 01/07/2019 12:19 Labor Evaluation Frequency: 0/hr Monitor Mode: External Resting Tone Pax: Relaxed Heart Rate FHR Baseline Rate: 130 Monitor Mode: External US Variability: Moderate 6-25 bpm Accelerations: 15X15 Decelerations: Variable Comments: x1 variable w/ return to baseline Datetime: 01/07/2019 12:14 Stage of : Antepartum Pain Presence: None/Denies Datetime: 01/07/2019 11:59 Monitor Mode: External Resting Tone Pax: Relaxed Pain Assessment Pain Scale: 2 Pain Presence: Constant Pain Type: Dull Pain Location: Abdomen Pain Goal: 2 Datetime: 01/07/2019 10:38 Comments: break in contact when lab entered room and pt. adjusting her position for lab draw Datetime: 01/07/2019 10:25 Stage of : Antepartum Maternal Assessment Level of Consciousness: Fully Conscious Headache: Denies Blurred Vision: No Respiratory Effort: Unlabored Nausea/Vomiting: Denies RUQ Epigastric Pain: Denies Pain Presence: None/Denies Datetime: 01/07/2019 10:20 Stage of : Antepartum Maternal Assessment Level of Consciousness: Fully Conscious Headache: Denies Nausea/Vomiting: Denies RUQ Epigastric Pain: Denies Labor Evaluation Frequency: 0/hr Monitor Mode: External Heart Rate FHR Baseline Rate: 130 Monitor Mode: External US Variability: Minimal - Undetectable to <=5 bpm (Annotations: minimal- moderate variability. pt. is s/p magnesium sulfate and appendectomy an dhas had pain meds. will cont. to monitor efm) Accelerations: 10X10 Decelerations: None Pain Assessment Pain Scale: 2 Pain Presence: Constant Pain Type: Dull Pain Location: insicion x4 laproscopic r/t appy. Membrane Status: Intact Vaginal Bleeding: None Datetime: 01/07/2019 09:15 Stage of : Antepartum Maternal Assessment Level of Consciousness: Fully Conscious Headache: Denies Nausea/Vomiting: Denies RUQ Epigastric Pain: Denies Labor Evaluation Frequency: 0/hr Monitor Mode: External Heart Rate FHR Baseline Rate: 130 Monitor Mode: External US Variability: Moderate 6-25 bpm Accelerations: 10X10 Decelerations: None Pain Assessment Pain Scale: 2 Pain Presence: Constant Pain Type: Dull Pain Location: insicion x4 laproscopic r/t appy. Membrane Status: Intact Vaginal Bleeding: None Datetime: 01/07/2019 09:11 Pain Assessment Pain Scale: 2 Pain Presence: Constant Pain Type: Dull Pain Assessment Comments: incision/splinting when getting oob Datetime: 01/07/2019 08:26 Stage of : Antepartum Temperature Route: Oral Labor Evaluation Frequency: 0/hr Monitor Mode: External Heart Rate FHR Baseline Rate: 125 Monitor Mode: External US Variability: Moderate 6-25 bpm Accelerations: 10X10 Decelerations: None Datetime: 01/07/2019 08:18 Stage of : Antepartum Temperature Route: Oral Pain Assessment Pain Scale: 5 Pain Presence: Constant Pain Type: Sharp Pain Assessment Comments: incision pain not uc's Datetime: 01/07/2019 07:08 Stage of : Antepartum Assessment Type: Ongoing Assessment Maternal Assessment Level of Consciousness: Fully Conscious DTR's/Clonus: DTRs 2+ Headache: Denies Blurred Vision: No Respiratory Effort: Unlabored Breath Sounds, Left: Clear and Equal Breath Sounds, Right: Clear and Equal Nausea/Vomiting: Denies RUQ Epigastric Pain: Denies Lower Extremities Edema: None Upper Extremities Edema: None Facial Edema: None Fall Risk Assessment History of Falling: (0) No Ambulatory Aid: (0) Bedrest/Nurse Assist IV Therapy: (20) Yes Gait: (0) Normal/Bedrest/Immobile Mental Status: (0) Oriented to Own Ability Pain Assessment Pain Scale: 2 Pain Presence: Constant Pain Location: Abdomen Datetime: 01/07/2019 06:00 Labor Evaluation Frequency: occasional Monitor Mode: External Duration (sec)2399: 60-70 Quality: Mild Resting Tone Pax: Relaxed Heart Rate FHR Baseline Rate: 135 Monitor Mode: External US Variability: Moderate 6-25 bpm Accelerations: 15X15 Decelerations: Variable Category: Category II Datetime: 01/07/2019 05:00 Labor Evaluation Frequency: x1 Monitor Mode: External Duration (sec)2399: 70 Quality: Mild Resting Tone Pax: Relaxed Heart Rate FHR Baseline Rate: 135 Monitor Mode: External US Variability: Moderate 6-25 bpm Accelerations: 10X10 Decelerations: None Pain Presence: None/Denies Datetime: 01/07/2019 04:00 Labor Evaluation Frequency: 0 Monitor Mode: External Resting Tone Pax: Relaxed Heart Rate FHR Baseline Rate: 130 Monitor Mode: External US Variability: Moderate 6-25 bpm Accelerations: 10X10 Decelerations: None Pain Presence: None/Denies Datetime: 01/07/2019 03:00 Labor Evaluation Frequency: x1 Monitor Mode: External Duration (sec)2399: 60 Quality: Mild Resting Tone Pax: Relaxed Heart Rate FHR Baseline Rate: 135 Monitor Mode: External US Variability: Moderate 6-25 bpm Accelerations: 10X10 Decelerations: None Category: Category I Pain Presence: None/Denies Datetime: 01/07/2019 02:00 Labor Evaluation Frequency: 0 Monitor Mode: External Resting Tone Pax: Relaxed Heart Rate FHR Baseline Rate: 135 Monitor Mode: External US Variability: Moderate 6-25 bpm Accelerations: 10X10 Decelerations: None Pain Presence: None/Denies Datetime: 01/07/2019 01:00 Labor Evaluation Frequency: 0 Monitor Mode: External Resting Tone Pax: Relaxed Heart Rate FHR Baseline Rate: 135 Monitor Mode: External US Variability: Moderate 6-25 bpm Accelerations: 15X15 Decelerations: None Category: Category I Datetime: 01/07/2019 00:00 Labor Evaluation Frequency: 0 Monitor Mode: External Duration (sec)2399: denies Resting Tone Pax: Relaxed Heart Rate FHR Baseline Rate: 135 Monitor Mode: External US Variability: Moderate 6-25 bpm Accelerations: 15X15 Decelerations: None Category: Category I Datetime: 01/06/2019 23:00 Labor Evaluation Frequency: 0 Monitor Mode: External Resting Tone Pax: Relaxed Heart Rate FHR Baseline Rate: 135 Monitor Mode: External US Variability: Moderate 6-25 bpm Accelerations: 15X15 Decelerations: None Category: Category I Datetime: 01/06/2019 21:59 Labor Evaluation Frequency: OCCASIONAL Monitor Mode: External Duration (sec)2399: 50-60 Quality: Mild Resting Tone Pax: Relaxed Heart Rate FHR Baseline Rate: 135 Monitor Mode: External US Variability: Moderate 6-25 bpm Accelerations: 15X15 Decelerations: None Category: Category I Pain Presence: None/Denies Datetime: 01/06/2019 21:16 Stage of : Antepartum Assessment Type: Ongoing Assessment Maternal Assessment Level of Consciousness: Fully Conscious DTR's/Clonus: DTRs 2+; No Clonus Headache: Denies Blurred Vision: No Respiratory Effort: Unlabored; Regular Rhythm; Equal Expansion Breath Sounds, Left: Clear and Equal Breath Sounds, Right: Clear and Equal Nausea/Vomiting: Denies RUQ Epigastric Pain: Denies Lower Extremities Edema: None Degree: None Upper Extremities Edema: None Degree: None Facial Edema: None Temperature Route: Oral Fall Risk Assessment History of Falling: (0) No Secondary Diagnosis: (0) No Ambulatory Aid: (0) Bedrest/Nurse Assist IV Therapy: (0) No Gait: (0) Normal/Bedrest/Immobile Mental Status: (0) Oriented to Own Ability Fall Score: 0 Fall Risk Score Definition: No Risk: No action required Pain Presence: None/Denies Datetime: 01/06/2019 20:39 Labor Evaluation Frequency: x2 Monitor Mode: External Duration (sec)2399: 60-90 Quality: Moderate Pattern: Normal: <= 5 Contractions in 10 Minutes Resting Tone Pax: Relaxed Heart Rate FHR Baseline Rate: 130 Monitor Mode: External US Variability: Moderate 6-25 bpm Accelerations: 15X15 Decelerations: None Category: Category I Datetime: 01/06/2019 20:00 Labor Evaluation Frequency: x3 Duration (sec)2399: 60-80 Quality: Moderate Pattern: Normal: <= 5 Contractions in 10 Minutes Resting Tone Pax: Relaxed Heart Rate FHR Baseline Rate: 120 Monitor Mode: External US Variability: Moderate 6-25 bpm Accelerations: 15X15 Decelerations: None Category: Category I Datetime: 01/06/2019 19:46 Stage of : Antepartum Assessment Type: Ongoing Assessment Maternal Assessment Level of Consciousness: Fully Conscious DTR's/Clonus: DTRs 2+; No Clonus Headache: Denies Blurred Vision: No Respiratory Effort: Unlabored; Regular Rhythm; Equal Expansion Breath Sounds, Left: Clear and Equal Breath Sounds, Right: Clear and Equal Nausea/Vomiting: Denies RUQ Epigastric Pain: Denies Lower Extremities Edema: None (Annotations: Minimal varcose veins noted on the left ankle. Moderate varcose veins and dark bruises noted on the right ankle. Pt denies pain and states they occured duri ng the not before.) Degree: None Upper Extremities Edema: None Degree: None Facial Edema: None Temperature Route: Axillary Fall Risk Assessment History of Falling: (0) No Secondary Diagnosis: (0) No Ambulatory Aid: (0) Bedrest/Nurse Assist IV Therapy: (20) Yes Gait: (0) Normal/Bedrest/Immobile Mental Status: (0) Oriented to Own Ability Fall Score: 20 Fall Risk Score Definition: No Risk: No action required Pain Assessment Pain Scale: 0 Pain Presence: None/Denies Pain Type: N/A Pain Goal: 0 Datetime: 01/06/2019 19:04 Labor Evaluation Frequency: X4 Monitor Mode: External Duration (sec)2399: 80 Quality: Mild Resting Tone Pax: Relaxed Heart Rate FHR Baseline Rate: 130 Monitor Mode: External US FHR Baseline Changes: No Baseline Change Variability: Moderate 6-25 bpm Accelerations: 15X15 Decelerations: None Category: Category I Datetime: 01/06/2019 18:30 Labor Evaluation Frequency: X4 Monitor Mode: External Duration (sec)2399: 80 Quality: Mild Resting Tone Pax: Relaxed Heart Rate FHR Baseline Rate: 130 Monitor Mode: External US FHR Baseline Changes: No Baseline Change Variability: Moderate 6-25 bpm Accelerations: 15X15 Decelerations: None Category: Category I Vaginal Exam Dilatation (cms): 0.0 Effacement (%): 0 Station: -4 Membrane Status: Intact Cervix, Consistency: Moderate Cervix, Position: Posterior Datetime: 01/06/2019 17:30 Labor Evaluation Frequency: X6 Monitor Mode: External Duration (sec)2399: 80 Quality: Mild Pattern: Normal: <= 5 Contractions in 10 Minutes Resting Tone Pax: Relaxed Heart Rate FHR Baseline Rate: 130 Monitor Mode: External US FHR Baseline Changes: No Baseline Change Variability: Moderate 6-25 bpm Accelerations: 15X15 Decelerations: None Category: Category I Datetime: 01/06/2019 16:31 Labor Evaluation Frequency: x7 Monitor Mode: External Quality: Mild Pattern: Normal: <= 5 Contractions in 10 Minutes Resting Tone Pax: Relaxed Heart Rate FHR Baseline Rate: 130 Monitor Mode: External US FHR Baseline Changes: No Baseline Change Variability: Moderate 6-25 bpm Accelerations: 15X15 Decelerations: None Category: Category I Datetime: 01/06/2019 16:05 Stage of : Antepartum Temperature Route: Oral Pain Type: Ache Pain Location: Abdomen Pain Goal: 3 Pain Relief Measures: Comfort Measures Datetime: 01/06/2019 16:00 Stage of : Antepartum Temperature Route: Oral Pain Assessment Pain Scale: 1 Pain Presence: Chronic Pain Location: Abdomen; Head Pain Goal: 1 Pain Relief Measures: Pain Medication Given; Comfort Measures Datetime: 01/06/2019 15:30 Labor Evaluation Frequency: x2 Monitor Mode: External Quality: Mild Resting Tone Pax: Relaxed Heart Rate FHR Baseline Rate: 130 Monitor Mode: External US FHR Baseline Changes: No Baseline Change Variability: Moderate 6-25 bpm Accelerations: 15X15 Decelerations: None Category: Category I Datetime: 01/06/2019 14:30 Labor Evaluation Frequency: x3 Monitor Mode: External Quality: Mild Pattern: Normal: <= 5 Contractions in 10 Minutes Resting Tone Pax: Relaxed Heart Rate FHR Baseline Rate: 130 Monitor Mode: External US FHR Baseline Changes: No Baseline Change Variability: Moderate 6-25 bpm Accelerations: 15X15 Decelerations: None Category: Category I Datetime: 01/06/2019 13:47 Labor Evaluation Frequency: X2 Monitor Mode: External Quality: Mild Resting Tone Pax: Relaxed Heart Rate FHR Baseline Rate: 130 Monitor Mode: External US FHR Baseline Changes: No Baseline Change Variability: Moderate 6-25 bpm Accelerations: None Decelerations: None Category: Category I Datetime: 01/06/2019 13:46 Stage of : Antepartum Temperature Route: Oral Pain Assessment Pain Scale: 1 Pain Presence: Constant Pain Type: Stabbing Pain Location: Abdomen Pain Goal: 0 Pain Relief Measures: Comfort Measures Datetime: 01/06/2019 13:41 Stage of : Antepartum Datetime: 01/06/2019 13:00 Labor Evaluation Frequency: X2 Monitor Mode: External Quality: Mild Resting Tone Pax: Relaxed Heart Rate FHR Baseline Rate: 130 Monitor Mode: Internal Scalp Electrode FHR Baseline Changes: No Baseline Change Variability: Moderate 6-25 bpm Accelerations: 10X10 Decelerations: None Category: Category I Datetime: 01/06/2019 12:00 Labor Evaluation Frequency: X4 Monitor Mode: External Duration (sec)2399: 40 Quality: Mild Pattern: Normal: <= 5 Contractions in 10 Minutes Resting Tone Pax: Relaxed Heart Rate FHR Baseline Rate: 130 Monitor Mode: External US FHR Baseline Changes: No Baseline Change Variability: Moderate 6-25 bpm Accelerations: None Decelerations: None Category: Category I Datetime: 01/06/2019 11:00 Labor Evaluation Frequency: X5 Monitor Mode: External Duration (sec)2399: 40 Quality: Mild Resting Tone Pax: Relaxed Heart Rate FHR Baseline Rate: 130 Monitor Mode: External US FHR Baseline Changes: No Baseline Change Variability: Moderate 6-25 bpm Accelerations: None Decelerations: None Category: Category I Datetime: 01/06/2019 10:00 Stage of : DR HADADIAN CALLED TO NOTIFY OF PT WITH CONTRACTIONS,STILL NPO ,WITH ORDER TO C ONTNUE MAGNESIUM AT 1.5 GMS/HR Datetime: 01/06/2019 09:57 Labor Evaluation Frequency: X5 Monitor Mode: External Quality: Mild Resting Tone Pax: Relaxed Contraction Comments: PT DOES NOT FEEL CONTRACTIONS Heart Rate FHR Baseline Rate: 130 Monitor Mode: External US FHR Baseline Changes: No Baseline Change Variability: Moderate 6-25 bpm Decelerations: Variable Category: Category II Datetime: 01/06/2019 09:00 Labor Evaluation Frequency: X8 Monitor Mode: External Quality: Mild Resting Tone Pax: Relaxed Heart Rate FHR Baseline Rate: 130 Monitor Mode: External US FHR Baseline Changes: No Baseline Change Variability: Moderate 6-25 bpm Accelerations: None Decelerations: None Category: Category I Datetime: 01/06/2019 08:05 Assessment Type: Ongoing Assessment Maternal Assessment Level of Consciousness: Fully Conscious DTR's/Clonus: DTRs 2+; No Clonus Headache: Denies Blurred Vision: No Respiratory Effort: Unlabored; Regular Rhythm; Equal Expansion Breath Sounds, Left: Clear and Equal Breath Sounds, Right: Clear and Equal Nausea/Vomiting: Denies RUQ Epigastric Pain: Denies Lower Extremities Edema: None Degree: None Upper Extremities Edema: None Degree: None Facial Edema: None Fall Risk Assessment History of Falling: (0) No Secondary Diagnosis: (0) No Ambulatory Aid: (0) Bedrest/Nurse Assist IV Therapy: (20) Yes Gait: (0) Normal/Bedrest/Immobile Mental Status: (0) Oriented to Own Ability Fall Score: 20 Fall Risk Score Definition: No Risk: No action required Datetime: 01/06/2019 08:01 Stage of : Antepartum Temperature Route: Oral Pain Assessment Pain Scale: 0 Pain Presence: None/Denies Pain Goal: 0 Datetime: 01/06/2019 07:59 Labor Evaluation Frequency: 3-7 Monitor Mode: External Quality: Mild Pattern: Normal: <= 5 Contractions in 10 Minutes Resting Tone Pax: Relaxed Heart Rate FHR Baseline Rate: 130 Monitor Mode: External US FHR Baseline Changes: No Baseline Change Variability: Moderate 6-25 bpm Accelerations: None Decelerations: None Category: Category I Datetime: 01/06/2019 07:53 Stage of : Antepartum Temperature Route: Oral Pain Assessment Pain Scale: 0 Pain Presence: None/Denies Pain Goal: 0 Datetime: 01/06/2019 07:48 Stage of : Antepartum Datetime: 01/06/2019 07:20 Stage of : Antepartum Datetime: 01/06/2019 07:00 Labor Evaluation Frequency: Q 6-8 Monitor Mode: External Duration (sec)2399: 60-110 Quality: Mild Resting Tone Pax: Relaxed Heart Rate FHR Baseline Rate: 130 Monitor Mode: External US Variability: Moderate 6-25 bpm Accelerations: 15X15 Decelerations: None Category: Category I Pain Presence: None/Denies Pain Type: N/A Pain Assessment Comments: PT SLEEPING RIGHT NOW Datetime: 01/06/2019 06:10 Labor Evaluation Frequency: X2-7 Monitor Mode: External Duration (sec)2399: 70-100 Quality: Mild Resting Tone Pax: Relaxed Heart Rate FHR Baseline Rate: 135 Monitor Mode: External US Variability: Moderate 6-25 bpm Accelerations: None Decelerations: None Category: Category I Pain Presence: None/Denies Pain Type: N/A Pain Assessment Comments: PT DENIES FEELING ANY UC'S AT THIS TIME. Datetime: 01/06/2019 05:00 Labor Evaluation Frequency: Q3-6 Monitor Mode: External Duration (sec)2399: 70-110 Quality: Mild Resting Tone Pax: Relaxed Heart Rate FHR Baseline Rate: 135 Variability: Moderate 6-25 bpm Accelerations: 15X15 Decelerations: None Category: Category I Pain Presence: Constant Pain Type: Burning Pain Location: Abdomen Pain Assessment Comments: INCISOIN SITED Datetime: 01/06/2019 04:55 Stage of : Antepartum Pain Assessment Pain Scale: 9 Pain Presence: Constant Pain Type: Burning Pain Location: Abdomen (Annotations: AT THE INCISION SITES) Pain Goal: 3 Datetime: 01/06/2019 04:45 Stage of : Antepartum Datetime: 01/06/2019 04:00 Stage of : Antepartum Labor Evaluation Frequency: Q 2-6 Monitor Mode: External Quality: Mild Resting Tone Pax: Relaxed Heart Rate FHR Baseline Rate: 135 Monitor Mode: External US Variability: Moderate 6-25 bpm Accelerations: 15X15 Decelerations: None Category: Category I Pain Presence: Constant Pain Type: Burning Pain Location: Abdomen Datetime: 01/06/2019 03:00 Labor Evaluation Frequency: Q 2-6 Monitor Mode: External Duration (sec)2399: 60-110 Quality: Mild Resting Tone Pax: Relaxed Heart Rate FHR Baseline Rate: 140 Variability: Moderate 6-25 bpm Accelerations: None Decelerations: None Category: Category I Pain Presence: None/Denies Pain Type: N/A Pain Assessment Comments: PT DENIES FEELING CRAMPS Datetime: 01/06/2019 02:56 Stage of : Antepartum Datetime: 01/06/2019 02:46 Stage of : Antepartum Datetime: 01/06/2019 02:00 Labor Evaluation Frequency: Q2-5 Monitor Mode: External Duration (sec)2399: 60-100 Quality: Mild Resting Tone Pax: Relaxed Heart Rate FHR Baseline Rate: 140 Monitor Mode: External US Variability: Moderate 6-25 bpm Accelerations: None Decelerations: None Category: Category I Datetime: 01/06/2019 01:38 Membrane Status: Intact Datetime: 01/06/2019 01:11 Stage of : Antepartum Datetime: 01/06/2019 01:00 Stage of : Antepartum Labor Evaluation Frequency: OCCASSIONAL Monitor Mode: External Duration (sec)2399: 60-70 Quality: Mild Resting Tone Pax: Relaxed Heart Rate FHR Baseline Rate: 150 Monitor Mode: External US Variability: Moderate 6-25 bpm Accelerations: 15X15 Decelerations: Variable Pain Assessment Pain Scale: 4 Pain Presence: Constant Pain Type: Sharp Pain Location: Abdomen Pain Goal: 2 Datetime: 01/06/2019 00:30 Stage of : Antepartum Datetime: 01/06/2019 00:21 Stage of : Antepartum Labor Evaluation Frequency: 2-4 Monitor Mode: External Duration (sec)2399: 60-80 Quality: Mild Resting Tone Pax: Relaxed Heart Rate FHR Baseline Rate: 140 Monitor Mode: External US Variability: Moderate 6-25 bpm Accelerations: 15X15 Decelerations: None Pain Assessment Pain Scale: 7 Pain Presence: Constant Pain Type: Sharp Pain Location: Abdomen Pain Goal: 2 Pain Relief Measures: Pain Medication Given Pain Assessment Comments: PT STATES SHE FEELS PAIN MORE WHEN THE BABY MOVES. Datetime: 01/05/2019 23:25 Stage of : Antepartum Labor Evaluation Frequency: 2-4 Monitor Mode: External Duration (sec)2399: 60-70 Duration (sec)2399: 50-70 Quality: Mild Resting Tone Pax: Relaxed Interventions: Oxygen Applied (Annotations: ON PT @ 15L FROM OR) Heart Rate FHR Baseline Rate: 145 Monitor Mode: External US Variability: Minimal - Undetectable to <=5 bpm Accelerations: None Decelerations: None Category: Category II Datetime: 01/05/2019 23:05 Stage of : Antepartum Monitor Mode: External Contraction Comments: REAPPLIED Monitor Mode: External US Comments: REAPPLIED Datetime: 01/05/2019 21:27 Stage of : Antepartum Labor Evaluation Frequency: X1 Monitor Mode: External Quality: Mild Resting Tone Pax: Relaxed Heart Rate FHR Baseline Rate: 155 Monitor Mode: External US Variability: Moderate 6-25 bpm Accelerations: None Decelerations: None Datetime: 01/05/2019 20:54 Stage of : Antepartum Monitor Mode: External Contraction Comments: APPLIED IN PACU WHILE PT IS WAITING FOR HER SURGERY. Monitor Mode: External US Comments: APPLIED IN PACU BEFORE HER SURGERY. Datetime: 01/05/2019 20:45 Labor Evaluation Frequency: X3 Monitor Mode: External Duration (sec)2399: 60-80 Quality: Mild Resting Tone Pax: Relaxed Heart Rate FHR Baseline Rate: 130 Monitor Mode: External US Variability: Moderate 6-25 bpm Accelerations: 15X15 Decelerations: None Category: Category I Pain Assessment Pain Scale: 9 Pain Presence: Constant Pain Type: Sharp Pain Location: Abdomen Datetime: 01/05/2019 20:00 Labor Evaluation Frequency: X2 Monitor Mode: External Duration (sec)2399: 60-80 Quality: Mild Resting Tone Pax: Relaxed Heart Rate FHR Baseline Rate: 165 Monitor Mode: External US Variability: Moderate 6-25 bpm Accelerations: 15X15 Decelerations: None Category: Category I Pain Assessment Pain Scale: 9 Pain Presence: Constant Pain Type: Sharp Pain Location: Abdomen Pain Goal: 4 Pain Relief Measures: Comfort Measures Pain Assessment Comments: PT TO BE GOING TO OR FOR APPENDECTOMY Datetime: 01/05/2019 19:26 Stage of : Antepartum Maternal Assessment Level of Consciousness: Fully Conscious DTR's/Clonus: DTRs 2+; No Clonus Headache: Denies Blurred Vision: No Respiratory Effort: Unlabored; Regular Rhythm; Equal Expansion Breath Sounds, Left: Clear and Equal Breath Sounds, Right: Clear and Equal Nausea/Vomiting: Denies RUQ Epigastric Pain: Denies Facial Edema: None Temperature Route: Oral Fall Risk Assessment History of Falling: (0) No Secondary Diagnosis: (0) No Ambulatory Aid: (0) Bedrest/Nurse Assist IV Therapy: (0) No Gait: (0) Normal/Bedrest/Immobile Mental Status: (0) Oriented to Own Ability Fall Score: 0 Fall Risk Score Definition: No Risk: No action required Monitor Mode: External Pain Assessment Pain Scale: 7 Pain Presence: Intermittent Pain Type: Dull; Sharp Pain Location: right side. Pain Goal: 3 Pain Relief Measures: Comfort Measures Datetime: 01/05/2019 18:48 Stage of : Antepartum Datetime: 01/05/2019 18:05 Labor Evaluation Frequency: 5-7 Monitor Mode: External Duration (sec)2399: 30-50 Quality: Mild Pattern: Normal: <= 5 Contractions in 10 Minutes Resting Tone Pax: Relaxed Heart Rate FHR Baseline Rate: 145 Monitor Mode: External US Variability: Moderate 6-25 bpm Accelerations: None Decelerations: None Category: Category II Pain Assessment Pain Scale: 5 Pain Presence: Intermittent Pain Type: Cramping Pain Location: Abdomen Pain Goal: 3 Pain Relief Measures: Comfort Measures Datetime: 01/05/2019 17:52 Stage of : Antepartum Datetime: 01/05/2019 17:38 Stage of : Antepartum Datetime: 01/05/2019 16:56 Labor Evaluation Frequency: 5-6 Monitor Mode: External Duration (sec)2399: 50-70 Quality: Mild Pattern: Normal: <= 5 Contractions in 10 Minutes Resting Tone Pax: Relaxed Heart Rate FHR Baseline Rate: 155 Monitor Mode: External US Variability: Moderate 6-25 bpm Decelerations: None Pain Assessment Pain Scale: 7 Pain Presence: Intermittent Pain Type: Cramping Pain Location: Abdomen Pain Goal: 3 Pain Relief Measures: Comfort Measures Datetime: 01/05/2019 16:53 Vaginal Exam Dilatation (cms): 0.5 Effacement (%): 50 Station: -2 Exam By: S TIMOTEO Vaginal Bleeding: None Cervix, Consistency: Soft Cervix, Position: Posterior Presentation 'A': Cephalic Datetime: 01/05/2019 16:50 Stage of : Antepartum Datetime: 01/05/2019 16:42 Stage of : Antepartum Datetime: 01/05/2019 16:04 Labor Evaluation Frequency: 4-6 Monitor Mode: External Duration (sec)2399: 30-50 Quality: Mild Pattern: Normal: <= 5 Contractions in 10 Minutes Resting Tone Pax: Relaxed Heart Rate FHR Baseline Rate: 155 Monitor Mode: External US Variability: Moderate 6-25 bpm Accelerations: 10X10 Decelerations: None Category: Category I Pain Assessment Pain Scale: 5 Pain Presence: Intermittent Pain Type: Cramping Pain Location: Abdomen Pain Goal: 3 Pain Relief Measures: Comfort Measures Datetime: 01/05/2019 13:52 Labor Evaluation Frequency: 2-6 Monitor Mode: External Duration (sec)2399: 30-50 Quality: Mild Pattern: Normal: <= 5 Contractions in 10 Minutes Resting Tone Pax: Relaxed Heart Rate FHR Baseline Rate: 135 Monitor Mode: External US Variability: Moderate 6-25 bpm Accelerations: None Decelerations: None Category: Category I Pain Assessment Pain Scale: 7 Pain Presence: Intermittent Pain Type: Cramping Pain Location: Abdomen; Back Pain Goal: 3 Pain Assessment Comments: LOWER RITHG ABDOMEN AND BACK Datetime: 01/05/2019 12:43 Assessment Type: Admission Assessment Vaginal Bleeding: None Maternal Assessment Level of Consciousness: Fully Conscious DTR's/Clonus: DTRs 2+; No Clonus Headache: Denies Blurred Vision: No Respiratory Effort: Unlabored; Regular Rhythm; Equal Expansion Breath Sounds, Left: Clear and Equal Breath Sounds, Right: Clear and Equal Nausea/Vomiting: Denies RUQ Epigastric Pain: Denies Facial Edema: None Fall Risk Assessment History of Falling: (0) No Secondary Diagnosis: (0) No Ambulatory Aid: (0) Bedrest/Nurse Assist IV Therapy: (0) No Gait: (0) Normal/Bedrest/Immobile Mental Status: (0) Oriented to Own Ability Fall Score: 0 Fall Risk Score Definition: No Risk: No action required Labor Evaluation Frequency: 0 Resting Tone Pax: Relaxed Heart Rate FHR Baseline Rate: 135 Variability: Moderate 6-25 bpm Accelerations: 10X10 Decelerations: None Category: Category I Pain Assessment Pain Scale: 7 Pain Presence: Constant Pain Type: Cramping; Stabbing Pain Location: Abdomen (Annotations: RT LOWER QUADRANT) Pain Goal: 3 Datetime: 01/05/2019 11:20 Stage of : Antepartum Datetime: 01/05/2019 09:22 EGA: 34.5 Datetime: 01/05/2019 09:14 Fall Score: 0 Fall Risk Score Definition: No Risk: No action required
[2019-02-06] MEDS ORDERED: MISOPROSTOL 200 MCG TAB PR PRN ×2 (10:00→16:30)
[2019-02-06] MEDS ORDERED: OXYTOCIN 30 UNITS/LR 500 ML IV PRN ×2 (10:00→16:30)
[2019-02-06] MEDS ORDERED: METHYLERGONOVINE 0.2 MG INJ IM PRN ×2 (10:00→16:30)
[2019-02-06] MEDS ORDERED: CARBOPROST 250 MCG INJ IM PRN ×2 (10:00→16:30)
[2019-02-06] MEDS ORDERED: BUTORPHANOL 2 MG INJ IV PRN (10:00)
[2019-02-06] MEDS ORDERED: LIDOCAINE 1% (MPF) 30 ML INJ INJ PRN (10:00)
[2019-02-06] MEDS ORDERED: OXYTOCIN 30 UNITS/LR 500 ML IV SCH ×2 (10:00)
[2019-02-06] MEDS ORDERED: BUTORPHANOL 1 MG INJ IV PRN (10:00)
[2019-02-06 10:35] VITALS: Ht 165.1 cm; Wt 72.7 kg
--- NOTE | 2019-02-06 15:04 | LDN ---
Date/Time of Note Date/Time of Note DATE: 02/06/19 TIME: 15:00 Delivery Summary of normal male with light mec Weeks of Gestation 39w2d Placenta Delivered: Spontaneously, Intact & Complete Meconium: Light Episiotomy: No Perineal laceration: 1 Laceration repair: 000 ch gut with SH needle Anesthesia type: Local Estimated blood loss: 100 Sponge & Needle done & correct: Yes All needle counts correct: Yes Any foreign bodies felt in the: No Delivery Information Sex Infant Sex: male Apgars 1 Minute: 8 5 Minute: 9 Suctioning Nose & mouth suctioned at wiley: Yes Delee suction performed: Yes Umbilical Cord Umbilical cord with: 3 Vessels Cord presentations: no nuchal cord Cord Blood was obtained: Yes Mother & Baby Disposition Disposition Mom & Baby to Maternity; Good: Yes Mom transferred to: Other Baby to NICU: No () JERARDO PAUL MD Feb 06, 2019 15:04
--- NOTE | 2019-02-06 15:11 | HP ---
Date/Time of Note Date/Time of Note DATE: 02/06/19 TIME: 15:04 OB - History Hx of Present Free Text/Dictation 33 y.o at 39w2d with c/o uc's with intact membrane EFM uc's 3-4min apart VE -/-2 had appendectomy on 01/05/19 during had limited care admitted for expectant management. Chief Complaint: uc's Estimated Due Date: Feb 11, 2019 : 5 Para: 4 Spontaneous : 0 Therapeutic : 0 Care: Limited Care Ultrasounds: Normal mid trimester US Obstetrical Complications: None Medical Complications: None Past Family/Social History * Past Medical, Surgical, Family and Obstetric Histories reviewed from chart. Blood Type: O+ Rubella: immune RPR/VDRL: Negative GBS Status: Negative HBsAG: Negative OB Admission Exam Physical Exam HEENT: WNL Heart: Rhythm Normal Lungs: Clear, Equal Abdomen: WNL Extremities: Normal Reflexes: Normal Cervical Dilatation: 3cm Effacement: 75% Station: -2 Membranes: Intact Amniotic Fluid: Unevaluable Heart Rate: 140's Accelerations: Accelerations Present Decelerations: No Decelerations Varibility: Moderate Contractions on Admission: < 5 Minutes Apart Intensity: Moderate Last 72 hours Lab Results CBC & BMP 02/06/19 10:15 OB Assessment/Plan Reason for admission: active labor Other Assessment: IUP 39w2d Plan: Expectant Management JERARDO PAUL MD Feb 06, 2019 15:11
[2019-02-06] MEDS ORDERED: IBUPROFEN 600 MG TAB PO PRN (15:30)
[2019-02-06 16:00] VITALS: BP 103/58; PULSE 70; RESP 18
[2019-02-06] MEDS ORDERED: ZOLPIDEM 5 MG TAB PO PRN (16:30)
[2019-02-06] MEDS ORDERED: LANOLIN HPA 1 PKT TOP PRN (16:30)
[2019-02-06] MEDS ORDERED: BENZOCAINE 20% 56 ML SPRAY TOP PRN (16:30)
[2019-02-06] MEDS ORDERED: WITCH HAZEL/GLYCERIN PAD PR PRN (16:30)
[2019-02-06] MEDS ORDERED: OXYCODONE/ASPIRIN (4.88/325) TAB PO PRN (16:30)
[2019-02-06] MEDS: IBUPROFEN 600 MG TAB PO SCH (18:00)
[2019-02-06 20:00] VITALS: BP 118/62; PULSE 74; RESP 20
[2019-02-06] MEDS: OXYCODONE/ASPIRIN (4.88/325) TAB PO PRN (20:00)
[2019-02-06] MEDS: SENNA/DOCUSATE NA (8.6MG/50MG) TAB PO SCH (21:17)
[2019-02-07] MEDS: IBUPROFEN 600 MG TAB PO SCH ×5 (00:06→23:16)
[2019-02-07 03:18] VITALS: BP 124/62; PULSE 72; RESP 20
[2019-02-07 08:00] VITALS: BP 101/59; PULSE 78
[2019-02-07] MEDS: SENNA/DOCUSATE NA (8.6MG/50MG) TAB PO SCH ×2 (09:10→21:05)
[2019-02-07] MEDS: OXYCODONE/ASPIRIN (4.88/325) TAB PO PRN (10:57)
[2019-02-07 15:23] VITALS: BP 94/51; PULSE 84; RESP 18
[2019-02-07 20:00] VITALS: BP 118/61; PULSE 72; RESP 20
[2019-02-08 04:49] VITALS: BP 110/62; PULSE 70; RESP 50
[2019-02-08] MEDS: IBUPROFEN 600 MG TAB PO SCH (05:16)
[2019-02-08] MEDS: OXYCODONE/ASPIRIN (4.88/325) TAB PO PRN (05:17)
[2019-02-08 07:30] VITALS: BP 98/54; PULSE 74; RESP 17
[2019-02-08] MEDS: SENNA/DOCUSATE NA (8.6MG/50MG) TAB PO SCH (08:36)
[2019-02-08] MEDS ORDERED: DIPHTH/TET/ACEL PERTUSS (ADULT) 0.5 ML VIAL IM* ONE ×2 (09:00→11:30)
--- NOTE | 2019-02-08 11:09 | PN ---
Date/Time of Note Date/Time of Note DATE: 02/08/19 TIME: 11:07 OB Subjective Subjective Subjective Late entry note. Patient seen on 02/07/2019 PPD# 1 Patient is doing well. She denies nausea, vomiting, shortness of breath, chest pain, headache. She has been ambulating without difficulty, tolerating regular diet. Pain is well controlled on current medications OB Objective Objective Objective VS - Last 72 Hours, by Label Date Temp Pulse Resp B/P (MAP) Pulse Ox O2 O2 Flow FiO2 Time Delivery Rate 02/08/19 97.5 74 17 98/54 (69) Room Air 07:30 02/08/19 98.4 70 50 110/62 Room Air 04:49 (78) 02/07/19 98.4 72 20 118/61 Room Air 20:00 (80) 02/07/19 98.3 84 18 94/51 (65) Room Air 15:23 02/07/19 98.0 78 101/59 Room Air 08:00 (73) 02/07/19 97.9 72 20 124/62 Room Air 03:18 (82) 02/06/19 98.0 74 20 118/62 Room Air 20:00 (80) 02/06/19 98.8 70 18 103/58 Room Air 16:00 (73) General: AAO X 3, comfortable, NAD, appropriate mood and affect. ABD: +BS. Soft, non-tender. Uterus 2 cm below umbilicus Flank: No CVA tenderness (B/L) LE: Mild edema. No clubbing, cyanosis, thigh or calf tenderness (B/L). Homans 'sign is negative OB Assessment/Plan Other plan: 33 years old s/p normal vaginal delivery at 39 weeks and 2 days. PPD#1 - AF, VSS - Baby is doing well, at bed side. She is bonding well - Contraception methods with R/B/A/FR discussed - Continue care - Discharge home tomorrow - Rx and instruction given - Follow up in 2 and 6 weeks at clinic ACROL HERRERA Feb 08, 2019 11:09
--- NOTE | 2019-02-08 11:10 | DS ---
Date/Time of Note Date/Time of Note DATE: 02/08/19 TIME: 11:09 Obstetrical Discharge Record Final Diagnosis Final Diagnosis: Term delivered Other Final Diagnosis 33 years old s/p normal vaginal delivery at 39 weeks and 2 days. PPD#1. course was unremarkable. She is ambulating and tolerating regular diet. She is voiding without difficulty. Pain is controlled on current medication. - AF, VSS - Baby is doing well, at bed side. She is bonding well - Contraception methods with R/B/A/FR discussed - Continue care - Discharge home tomorrow - Rx and instruction given - Follow up in 2 and 6 weeks at clinic Vaginal Delivery Obstetrical Delivery: Spontaneous Condition on Discharge Physical Assessment Last Vitals: Vital Signs Date Temp Pulse Resp B/P (MAP) Pulse Ox O2 O2 Flow FiO2 Time Delivery Rate 02/08/19 97.5 74 17 98/54 (69) Room Air 07:30 Voiding: Yes Bowel Movement: Yes Breast: Soft, non-tender Fundus: Firm Calf Tenderness: No Patient Condition: Stable CAROL HERRERA Feb 08, 2019 11:10
[2019-02-08] MEDS ORDERED: OXYCODONE/ASPIRIN (4.88/325) TAB PO PRN ×2 (11:30)
[2019-02-08] MEDS ORDERED: CARBOPROST 250 MCG INJ IM PRN (11:30)
[2019-02-08] MEDS ORDERED: ZOLPIDEM 5 MG TAB PO PRN (11:30)
[2019-02-08] MEDS ORDERED: BENZOCAINE 20% 56 ML SPRAY TOP PRN (11:30)
[2019-02-08] MEDS ORDERED: LANOLIN HPA 1 PKT TOP PRN (11:30)
[2019-02-08] MEDS ORDERED: MISOPROSTOL 200 MCG TAB PR PRN (11:30)
[2019-02-08] MEDS ORDERED: WITCH HAZEL/GLYCERIN PAD PR PRN (11:30)
[2019-02-08] MEDS ORDERED: OXYTOCIN 30 UNITS/LR 500 ML IV PRN (11:30)
[2019-02-08] MEDS ORDERED: METHYLERGONOVINE 0.2 MG INJ IM PRN (11:30)
[2019-02-08] MEDS ORDERED: IBUPROFEN 600 MG TAB PO SCH (12:00)
--- NOTE | 2019-02-08 19:54 | QN ---
Documentation Comment This is a late entry note for 02/07/2019 day #1 Status post Patient stable and afebrile Tolerating regular diet and ambulating and voiding without any difficulties Vital signs stable VS - Last 72 Hours, by Label Date Temp Pulse Resp B/P (MAP) Pulse Ox O2 O2 Flow FiO2 Time Delivery Rate 02/08/19 97.5 74 17 98/54 (69) Room Air 07:30 02/08/19 98.4 70 50 110/62 Room Air 04:49 (78) 02/07/19 98.4 72 20 118/61 Room Air 20:00 (80) 02/07/19 98.3 84 18 94/51 (65) Room Air 15:23 02/07/19 98.0 78 101/59 Room Air 08:00 (73) 02/07/19 97.9 72 20 124/62 Room Air 03:18 (82) 02/06/19 98.0 74 20 118/62 Room Air 20:00 (80) 02/06/19 98.8 70 18 103/58 Room Air 16:00 (73) Hematology - 72 Hrs Test 02/06/19 10:15 02/07/19 06:22 02/08/19 11:27 Hematocrit 37.5 % (37.0-47.0) 33.7 % (37.0-47.0) 36.1 % (37.0-47.0) L L Hemoglobin 12.8 11.4 12.1 g/dl (12.0-16.0) g/dl (12.0-16.0) g/dl (12.0-16.0) L Mean Corpuscular 30.5 pg (29.0-33.0) 30.4 30.6 Hemoglobin pg (29.0-33.0) pg (29.0-33.0) Mean Corpuscular 34.1 33.8 33.5 Hemoglobin Concent g/dl (32.0-37.0) g/dl (32.0-37.0) g/dl (32.0-37.0) Mean Corpuscular 89.5 89.9 91.4 Volume fl (82.0-101.0) fl (82.0-101.0) fl (82.0-101.0) Mean Platelet 10.7 fl (7.4-10.4) 10.8 fl (7.4-10.4) 10.0 fl (7.4-10.4) Volume H H Platelet Count 171 187 204 10^3/UL (140-415) 10^3/UL (140-415) 10^3/UL (140-415) # Red Blood Count 4.19 3.75 3.95 10^6/ul (4.20-5.40) 10^6/ul (4.20-5.40 10^6/ul (4.20-5.40 L ) L ) L Red Cell 13.9 % (11.5-14.5) 13.8 % (11.5-14.5) 14.0 % (11.5-14.5) Distribution Width White Blood Count 10.4 14.0 12.3 10^3/ul (4.8-10.8) 10^3/ul (4.8-10.8) 10^3/ul (4.8-10.8) #H H Abdomen soft, fundus firm Perineum intact Extremities nontender Assessment and plan; Patient stable and doing well Continue with routine care ALHAJI MATIAS MD Feb 08, 2019 19:54
[2019-02-08] MEDS ORDERED: SENNA/DOCUSATE NA (8.6MG/50MG) TAB PO SCH (21:00)
--- NOTE | 2019-02-09 13:34 | DELSUM ---
Delivery Summary A-C Datetime Report Generated by CPN: 02/09/2019 13:34 DELIVERY PERSONNEL [employer]: Zainab Kellynda MATERNAL INFORMATION Delivery Anesthesia: Local Medications in Delivery: 30 units pitocin, Lidocaine 30ml Delivery QBL (ml): 96 Placenta Cultured: No LABOR SUMMARY EDC: 02/11/2019 00:00 No. Babies in Womb: 1 Attempted: No Labor Anesthesia: None LABOR INFORMATION Reason for Induction: Not Applicable Onset of Labor: 02/06/2019 09:00 Complete Dilatation: 02/06/2019 13:41 Oxytocin: N/A Group B Beta Strep: Negative Antibiotics # of Doses: 0 Steroids Given: None Reason Steroids Not Administered: Not Applicable MEMBRANES Membranes Rupture Method: Artificial Rupture of Membranes: 02/06/2019 14:06 Length of Rupture (hr): 0.05 Amniotic Fluid Color: Light Meconium Amniotic Fluid Amount: Moderate Amniotic Fluid Odor: None STAGES OF LABOR Stage 1 hr: 4 Stage 1 min: 41 Stage 2 hr: 0 Stage 2 min: 28 Stage 3 hr: 0 Stage 3 min: 5 Total Time in Labor hr: 5 Total Time in Labor min: 14 VAGINAL DELIVERY Episiotomy: None Laceration Extension: First Degree Laceration Type: Perineal Laceration Repair: Yes Initial Vag Sponge Count: 10 Final Vag Sponge Count: 10 Initial Vag Sharps Count: 1+1 Final Vag Sharps Count: 2 Sponge Count Correct: Yes; Vaginal Sweep Performed Sharps Count Correct: Yes BABY A INFORMATION Infant Delivery Date/Time: 02/06/2019 14:09 Method of Delivery: Vaginal Born in Route : No : N/A Forceps: N/A Vacuum Extraction: N/A Shoulder Dystocia : N/A SHOULDER DYSTOCIA BABY A Delivery Date/Time: 02/06/2019 14:09 PRESENTATION/POSITION BABY A Presentation: Cephalic Cephalic Presentation: Vertex Breech Presentation: N/A PLACENTA INFORMATION BABY A Placenta Delivery Time : 02/06/2019 14:14 Placenta Method of Delivery: Spontaneous Placenta Status: Delivered SCORES BABY A Heart Rate 1 min: >100 bpm Resp Effort 1 min: Good Cry Reflex Irritability 1 min: Cough/Sneeze/Pulls Away Muscle Tone 1 min: Active Motion Color 1 min: Blue/Pale Resuscitation Effort 1 min: Tactile Stimulation; Oxygen SCORE 1 MIN: 8 Heart Rate 5 min: >100 bpm Resp Effort 5 min: Good Cry Reflex Irritability 5 min: Cough/Sneeze/Pulls Away Muscle Tone 5 min: Active Motion Color 5 min: Body [place], Extremit Blue Resuscitation Effort 5 min: Tactile Stimulation SCORE 5 MIN: 9 INFANT INFORMATION BABY A Gestational Age at Delivery: 39.2 Gestational Status: Full Term- 39- 40.6 Weeks Infant Outcome : Liveborn Infant Condition : Stable Infant Sex: Male IDENTIFICATION/MEDS BABY A ID Band Number: [id number] ID Band Location: Right Leg; Left Arm Sensor Applied: Yes Sensor Number: [id number] Sensor Location : Cord Clamp Vitamin K Given : Not Given Erythromycin Given: Not Given WEIGHT/LENGTH BABY A Birthweight (gm): 3380 Infant Weight (lb): 7 Weight (oz): 7 Infant Length (in): 19.00 Infant Length (cm): 48.26 CORD INFORMATION BABY A No. Cord Vessels: 3 Nuchal Cord : N/A Cord Blood Taken: Yes Infant Suction: Mouth; Nose ASSESSMENT BABY A Infant Complications: None Physical Findings at Delivery: Within Normal Limits Infant Respirations: Appears Normal Stock Patch Sawyer/ALS Called : No Infant Care By: MANUEL Ramon Transferred To: Remains with Mother
== END 2019-02-08 13:33 | disposition home or self-care (01) | DRG 807 ==
LOC: L-D 09:31 → OBT 09:31 → L-D 09:40 → PP1 16:02
PROVIDERS: ADMIT Obstetrics & Gynecology; ATTEND Obstetrics & Gynecology
PROC: 10E0XZZ Delivery of Products of Conception, External Approach (ICD-10-PCS; principal; 2019-02-06)
PROC: 0HQ9XZZ Repair Perineum Skin, External Approach (ICD-10-PCS; 2019-02-06)
PROC: 4A1HXCZ Monitoring of Products of Conception, Cardiac Rate, External Approach (ICD-10-PCS; 2019-02-06)
DX: O70.0 First degree perineal laceration during delivery (principal); Z37.0 Single live birth; Z3A.39 39 weeks gestation of pregnancy; Z90.49 Acquired absence of other specified parts of digestive tract
CPT/HCPCS: 85025; 85610; 85730; 86592; 86850; 86900; 86901; 87340; 99464; G0463; J0595; J2590; J7120